=== PATIENT | male | born 1975 | race Caucasian/White ===

== ENCOUNTER 2018-10-31 12:12 | Outpatient (CLI) | payer OTHER ==
[~2018-10-31 12:12] MED LIST: AZITHROMYCIN250 MG PO; FLONASE16 G1 NS; FLOVENT 110MCG7.9 GM IH; TUSSIONEX PENNKI5 ML PO
== END 2018-10-31 12:24 | disposition home or self-care (01) ==
LOC: MRI 12:12
DX: G47.33 Obstructive sleep apnea (adult) (pediatric) (principal); E78.49 Other hyperlipidemia; E78.1 Pure hyperglyceridemia; M25.511 Pain in right shoulder
CPT/HCPCS: 73218

== ENCOUNTER 2020-07-01 07:09 | Outpatient (CLI) | payer OTHER | END 2020-07-01 07:31 | disposition home or self-care (01) | LOC: TOM 07:09 | PROVIDERS: ATTEND General Practice | DX: E04.1 Nontoxic single thyroid nodule (principal); R22.9 Localized swelling, mass and lump, unspecified; E66.9 Obesity, unspecified; R21 Rash and other nonspecific skin eruption; R10.9 Unspecified abdominal pain; R13.10 Dysphagia, unspecified ==

== ENCOUNTER 2022-02-23 20:41 | Emergency (ER) | payer OTHER ==
[~2022-02-23] VITALS: Ht 177.8 cm; Wt 99.8 kg
== END 2022-02-24 00:10 | disposition home or self-care (01) ==
LOC: ER 20:41
DX: M25.512 Pain in left shoulder (principal); M25.522 Pain in left elbow; M25.542 Pain in joints of left hand; M89.8X3 Other specified disorders of bone, forearm; M54.2 Cervicalgia; M89.8X8 Other specified disorders of bone, other site; M25.532 Pain in left wrist; V80.010A Animal-rider injured by fall from or being thrown from horse in noncollision accident, initial encounter; Y93.52 Activity, horseback riding; Y92.9 Unspecified place or not applicable

== ENCOUNTER 2022-12-13 09:24 | Outpatient (CLI) | payer OTHER | END 2022-12-13 09:40 | disposition home or self-care (01) | LOC: MRI 09:24 | PROVIDERS: ATTEND General Practice | DX: M54.50 Low back pain, unspecified (principal); G89.29 Other chronic pain | CPT/HCPCS: 72148 ==

== ENCOUNTER 2023-04-17 06:14 | Emergency (ER) | payer OTHER ==
[~2023-04-17] VITALS: Ht 177.8 cm; Wt 100.7 kg
[~2023-04-17 06:14] MED LIST changes: +METAXALONE800 MG PO
[2023-04-17] MEDS ORDERED: CEFTRIAXONE SODIUM 2,000 MG VIAL IM STA (07:15)
[2023-04-17] MEDS ORDERED: DEXAMETHASONE SODIUM PHOSPHATE 4 MG/ML VIAL IM STA (07:15)
== END 2023-04-17 08:28 | disposition home or self-care (01) ==
LOC: ER 06:14
DX: L03.211 Cellulitis of face (principal); L03.114 Cellulitis of left upper limb; L03.113 Cellulitis of right upper limb
CPT/HCPCS: 96372; 99292; J0696; J1100